=== PATIENT | female | born 1970 | race Caucasian/White ===

== ENCOUNTER 2021-07-18 09:13 | Day surgery (SDC) | payer BC ==
[2021-07-14 12:49] VITALS: BMI 37.5
[2021-07-18] MEDS ORDERED: LIDOCAINE HCL/PF 2% SDV 5ML VIAL ONE (10:40)
[2021-07-18] MEDS ORDERED: PROPOFOL 20 ML ONE ×3 (10:40→12:48)
[2021-07-18] MEDS ORDERED: SCOPOLAMINE HYDROBROMIDE 1 PATCH PATCH.TD72 ONE (11:35)
[2021-07-18] MEDS ORDERED: BUPIVACAINE HCL/PF 0.5% (5MG/ML) 10 ML VIAL ONE (11:39)
[2021-07-18] MEDS ORDERED: MIDAZOLAM HCL 2 MG/2 ML SINGLE DOSE VIAL ONE (11:39)
[2021-07-18] MEDS ORDERED: SODIUM CHLORIDE 0.9% P/F 10 ML VIAL IJ ONE (11:39)
[2021-07-18] MEDS ORDERED: BUPIVACAINE LIPOSOME/PF (EXPAREL) 266 MG/20 ML VIAL ONE (11:39)
[2021-07-18] MEDS ORDERED: VANCOMYCIN 1,000 MG VIAL (RESTRICTED TO ID ONLY) ONE (12:15)
[2021-07-18] MEDS ORDERED: ceFAZolin SODIUM 1 GM VIAL ONE (12:33)
[2021-07-18] MEDS ORDERED: TRANEXAMIC ACID 1000 MG/10 ML VIAL ONE (12:35)
[2021-07-18] MEDS ORDERED: HYDROmorphone HCL/PF 1 MG/ML VIAL ONE ×3 (12:36→14:26)
[2021-07-18] MEDS ORDERED: oxyCODONE HCL 5 MG TABLET PO PRN ×2 (12:43)
[2021-07-18] MEDS ORDERED: ONDANSETRON 4 MG/2 ML VIAL IVPUSH PRN (12:43)
[2021-07-18] MEDS ORDERED: LACTATED RINGERS SOLUTION 1,000 ML IV SCH (12:45)
[2021-07-18] MEDS ORDERED: DEXAMETHASONE SOD PHOSPHATE 4 MG/1 ML VIAL ONE (12:46)
[2021-07-18] MEDS ORDERED: ESMOLOL HCL 100,000 MCG/10 ML VIAL ONE (13:10)
[2021-07-18] MEDS ORDERED: LABETALOL HCL 5 MG/1 ML (100MG/20 ML VIAL) ONE (14:26)
[2021-07-18] MEDS ORDERED: HYDROmorphone HCl 2 MG/ML VIAL IVPUSH PRN (15:27)
[2021-07-18] MEDS ORDERED: LABETALOL HCL 5 MG/1 ML (100MG/20 ML VIAL) IVPUSH ONE (15:32)
[2021-07-18 15:41] VITALS: TEMP 97.8
[2021-07-18 17:13] VITALS: BP 123/88; PULSE 89
== END 2021-07-18 17:00 | disposition home or self-care (01) ==
LOC: FASU 09:13
PROVIDERS: ATTEND Orthopaedic Surgery
PROC: 0SBD4ZZ Excision of Left Knee Joint, Percutaneous Endoscopic Approach (ICD-10-PCS; 2021-07-18)
PROC: 0SBD4ZZ Excision of Left Knee Joint, Percutaneous Endoscopic Approach (ICD-10-PCS; 2021-07-18)
PROC: 0MRP47Z Replacement of Left Knee Bursa and Ligament with Autologous Tissue Substitute, Percutaneous Endoscopic Approach (ICD-10-PCS; principal; 2021-07-18 12:50)
DX: S83.512A Sprain of anterior cruciate ligament of left knee, initial encounter (principal); S83.242A Other tear of medial meniscus, current injury, left knee, initial encounter; S83.282A Other tear of lateral meniscus, current injury, left knee, initial encounter; S83.8X2A Sprain of other specified parts of left knee, initial encounter; M65.862 Other synovitis and tenosynovitis, left lower leg; X58.XXXA Exposure to other specified factors, initial encounter; Y93.9 Activity, unspecified; Y92.9 Unspecified place or not applicable
CPT/HCPCS: 29879; 29880; 29888; C1713; 84703; 88304-TC; 94760